=== PATIENT | male | born 1995 | race Caucasian/White ===

== ENCOUNTER 2016-08-01 11:28 | Inpatient (IN) | payer OTHER ==
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
[2016-08-01 14:22] LABS: Basophils # (A) 0.1 k/uL (0-0.2); Basophils % (A) 1 %; CH 31.8; CHCM 36.1; Eosinophils # (A) 0.1 k/uL (0-0.7); Eosinophils % (A) 1 %; HCT 42.5 % (39.0-53.0); HDW 2.68; HGB 15.1 gm/dL (13.0-17.5); Luc # (Auto) 0.11; Luc % (Auto) 2; Lymphocytes # (A) 2.5 k/uL (1.0-4.8); Lymphocytes % (A) 35 %; MCH 31.4 pg (25.0-35.0); MCHC 35.5 g/dL (31.0-37.0); MCV 88.4 fL (80.0-100.0); Mean Platelet Volume 6.6; Monocytes # (A) 0.4 k/uL (0-1.0); Monocytes % (A) 6 %; Neutrophils % (A) 56 %; RDW 12.8 % (11.5-15.5); WBC 7.1 k/uL (4.0-11.0); WBC (Perox) 6.62
[2016-08-01] MEDS ORDERED: NICOTINE 21MG/24HR PATCH TRANSDERM STA (14:25)
[2016-08-01 14:32] LABS: ALT 32 U/L (21-72); AST 23 U/L (17-59); Alkaline Phosphatase 44 U/L (38-126); Anion Gap 11 mmol/L; Blood Urea Nitrogen 9 mg/dL (9-20); Calcium 9.3 mg/dL (8.4-10.2); Carbon Dioxide 25 mmol/L (22-30); Chloride 106 mmol/L (98-107); Glucose 83 mg/dL (74-99); Non-African American GFR(MDRD) >60 (>60 ml/min/1.73 sqM); Potassium 4.1 mmol/L (3.5-5.1); Sodium 142 mmol/L (137-145); Total Bilirubin 0.8 mg/dL (0.2-1.3); Total Protein 7.3 g/dL (6.3-8.2)
[2016-08-01] MEDS ORDERED: MAGNESIUM HYDROXIDE 2,400 MG/10 ML CUP PO PRN (16:17)
[2016-08-01] MEDS ORDERED: MAG HYDROX/AL HYDROX/SIMETH 30 ML CUP PO PRN (16:17)
[2016-08-01] MEDS ORDERED: ACETAMINOPHEN TAB 325 MG TAB PO PRN (16:17)
[2016-08-01] MEDS ORDERED: clonazePAM 0.5 MG TAB PO PRN (16:24)
[2016-08-01 17:11] VITALS: BMI 21.7
[2016-08-01] MEDS: NICOTINE 21MG/24HR PATCH TRANSDERM SCH (21:22)
[2016-08-02] MEDS ORDERED: LORazepam 1 MG TAB PO PRN (10:22)
[2016-08-02] MEDS ORDERED: MELATONIN 5 MG TABLET PO PRN (10:22)
[2016-08-02] MEDS: NICOTINE 21MG/24HR PATCH TRANSDERM SCH (10:23)
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
[2016-08-02] MEDS: VENLAFAXINE HCL ER 75 MG CAP PO SCH (12:49)
--- NOTE | 2016-08-02 15:12 | P.CONS ---
History of Present Illness - Reason for Consult Consult date: 08/02/16 Medical management - History of Present Illness This is a 20-year-old male with no significant past medical history but has history of anxiety,and tobacco use and dependence. He states his primary care physician as an Nikolas and has been treating him for anxiety. He has been on Zoloft and Klonopin and was having some suicidal thoughts which she thought was related to the medications. He came into the [facility] emergency center and was subsequently admitted to the mental health unit. TSH 1.590. Urine drug screen was negative. He said he is not eating much since his been here but thinks his appetite is fine at home. He states he is only sleeping about 3-4 hours per night. He denies any nausea. He did state he had some mild diarrhea last evening. Review of Systems All systems: negative Constitutional: Denies chills, Denies fever Eyes: denies blurred vision, denies pain Ears, nose, mouth and throat: Denies headache, Denies sore throat Cardiovascular: Denies chest pain, Denies shortness of breath Respiratory: Denies cough Gastrointestinal: Denies abdominal pain, Denies diarrhea, Denies nausea, Denies vomiting Musculoskeletal: Denies myalgias Integumentary: Denies pruritus, Denies rash Neurological: Denies numbness, Denies weakness Psychiatric: Reports anxiety attacks, Reports depression, Denies anxiety Endocrine: Denies fatigue, Denies weight change Past Medical History Past Medical History: No Reported History History of Any Multi-Drug Resistant Organisms: None Reported Past Surgical History: No Surgical Hx Reported Additional Past Surgical History / Comment(s): Tendon repair of the right middle finger. Past Psychological History: Anxiety, Depression Smoking Status: Current every day smoker Past Alcohol Use History: None Reported Additional Past Alcohol Use History / Comment(s): She is a smoker of a half a pack to 1 pack per day. He denies any medical marijuana, marijuana, street drug or alcohol use. Past Drug Use History: None Reported - Past Family History Father Additional Family Medical History / Comment(s): Father is alive at age 47 with history of lung problems. Mother Additional Family Medical History / Comment(s): Mother is alive at age 58 with history of osteoarthritis. Brother(s) Additional Family Medical History / Comment(s): Patient has 1 brother that is healthy. Sister(s) History Unknown: Yes Additional Family Medical History / Comment(s): Patient has 2 sisters. One has anxiety, depression and PTSD. Patient does not have any children. Medications and Allergies Home Medications Medication Instructions Recorded Confirmed Type Sertraline [Zoloft] 100 mg PO DAILY 08/01/16 08/01/16 History clonazePAM [KlonoPIN] 0.5 mg PO BID PRN 08/01/16 08/01/16 History Allergies Allergy/AdvReac Type Severity Reaction Status Date / Time No Known Allergies Allergy Verified 08/01/16 13:31 Physical Exam Vitals: Vital Signs Temp Pulse Pulse Resp BP BP Pulse Ox 08/02/16 06:54 97.5 F L 49 L 16 110/57 08/01/16 16:34 99.1 F 87 16 95/62 08/01/16 15:48 97.8 F 75 16 112/58 97 08/01/16 11:37 97.9 F 72 16 117/76 99 Intake and Output 08/01/16 08/02/16 08/02/16 22:59 06:59 14:59 Other: Weight 66.9 kg Gen: This is a 20-year-old male. He is cooperative and appears to be in no acute distress. HEENT: Head is atraumatic, normocephalic. Pupils equal, round. Sclerae is anicteric. NECK: Supple. No JVD. No lymphadenopathy. No thyromegaly. LUNGS: Clear to auscultation. No wheezes or rhonchi. No intercostal retractions. HEART: Regular rate and rhythm. No murmur. ABDOMEN: Soft. Bowel sounds are present. No masses. No tenderness. EXTREMITIES: No pedal edema. No calf tenderness. NEUROLOGICAL: Patient is awake, alert and oriented x3. Cranial nerves 2 through 12 are grossly intact. Results CBC & Chem 7: 08/01/16 13:57 08/01/16 13:57 Assessment and Plan Plan: 1. Generalized anxiety disorder. Patient admitted to the mental health unit. Continue current plan of care. 2. Tobacco use and dependence. Continue nicotine patch. 3. Insomnia. Melatonin. Impression and plan of care have been directed as dictated by the signing physician. Mira Walsh nurse practitioner acting as scribe for signing physician.
[2016-08-02] MEDS: NICOTINE POLACRILEX 2 MG GUM BUCCAL PRN (22:38)
[2016-08-03] MEDS: VENLAFAXINE HCL ER 75 MG CAP PO SCH (08:59)
[2016-08-03] MEDS: NICOTINE POLACRILEX 2 MG GUM BUCCAL PRN ×3 (09:00→19:03)
--- NOTE | 2016-08-03 09:42 | P.PN ---
Progress Note - Text Interval history: The patient is found in group he follows me to an interview room. He reports his mood is improving. He was able to sleep more last night and thinks he was able to sleep approximate 6 hours he did not use the melatonin. He states he has not needed Ativan. We started the Effexor XR he has no other questions at this time. He did speak with his parents via phone. He continues to find them supportive. He is verbalizing more future oriented goals. 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 Mental status exam: The patient is alert he presents with good hygiene grooming eye contact is appropriate speech is fluent spontaneous nonpressured. He reports his mood is improving. He is reporting no current suicidal ideation he has no homicidal ideation. He endorses no auditory or visual hallucinations no specific delusions. He demonstrates no agitated speech or behavior. Cognitively he remains grossly intact. Insight and judgment is improving. Affect is more appropriately expresses. Plan: The patient will be continued on his current medication. Social work will be asked to arrange a support meeting we will consider discharging him tomorrow if he demonstrates continued improvement and appears clinically stable. Vital signs reviewed. Laboratory results reviewed.
[2016-08-04 06:26] VITALS: BP 109/71; PULSE 75; RESP 15; TEMP 98.1
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
[2016-08-04] MEDS: NICOTINE POLACRILEX 2 MG GUM BUCCAL PRN (09:24)
[2016-08-04] MEDS: VENLAFAXINE HCL ER 75 MG CAP PO SCH (09:24)
== END 2016-08-04 09:28 | disposition home or self-care (01) | DRG 885 ==
LOC: EC 11:28 → 3MHU 15:29
PROVIDERS: ADMIT Psychiatry & Neurology Psychiatry; ATTEND Psychiatry & Neurology Psychiatry
DX: F33.2 Major depressive disorder, recurrent severe without psychotic features (principal); R45.851 Suicidal ideations; F41.0 Panic disorder [episodic paroxysmal anxiety]; F17.200 Nicotine dependence, unspecified, uncomplicated; Z81.8 Family history of other mental and behavioral disorders; G47.00 Insomnia, unspecified; F90.9 Attention-deficit hyperactivity disorder, unspecified type; Z79.899 Other long term (current) drug therapy
CPT/HCPCS: 36415; 80053; 80306; 82075; 84443; 85025; 93005; 99285